=== PATIENT | male | born 1990 | race Caucasian/White ===

== ENCOUNTER → 2019-12-04 | Outpatient (CLI) | payer OTHER | LOC: COL.RAD 09:43 | DX: S73.192A Other sprain of left hip, initial encounter (principal) | CPT/HCPCS: A9585; Q9967 ==

== ENCOUNTER → 2020-03-30 | Outpatient (CLI) | payer OTHER | LOC: COL.RAD 03-17 08:15 | DX: M25.551 Pain in right hip (principal) | CPT/HCPCS: A9585; Q9967 ==